=== PATIENT | male | born 1975 | race Caucasian/White ===

== ENCOUNTER 2018-08-12 12:37 | Emergency (ER) | payer SELFPAY ==
--- NOTE | 2018-08-12 13:49 | EDPHYS ---
Physician Documentation [facility] Name: Howie Gutierrez Age: 42 yrs Sex: Male : 1975 Arrival Date: 08/12/2018 Time: 12:38 Bed 26 Private MD: ED Physician Rip Cook HPI: 08/12 13:45 This 42 yrs old Male presents to ER via Ambulatory with complaints of erica Laceration To Arm. 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 The laceration(s) is(are) erica located on the left wrist. Onset: The symptoms/episode began/occurred just prior to arrival. Associated signs and symptoms: The patient has no apparent associated signs or symptoms. The patient has not experienced similar symptoms in the past. Historical: - Allergies: 13:02 No Known Allergies; hj - PMHx: 13:02 None; hj - PSHx: 13:02 None; hj - Immunization history:: Adult Immunizations up to date. - Social history:: Smoking status: Patient/guardian denies using tobacco, Patient/guardian denies using alcohol. - Ebola Screening: : Patient negative for fever greater than or equal to 101.5 degrees Fahrenheit, and additional compatible Ebola Virus Disease symptoms Patient denies exposure to infectious person Patient denies travel to an Ebola-affected area in the 21 days before illness onset. - Family history:: not pertinent. ROS: 13:45 Constitutional: Negative for fever, chills, and weight loss, Eyes: Negative for injury, erica pain, redness, and discharge, ENT: Negative for injury, pain, and discharge, Neck: Negative for injury, pain, and swelling, Cardiovascular: Negative for chest pain, palpitations, and edema, Respiratory: Negative for shortness of breath, cough, wheezing, and pleuritic chest pain, Abdomen/GI: Negative for abdominal pain, nausea, vomiting, diarrhea, and constipation, Back: Negative for injury and pain, : Negative for injury, bleeding, discharge, and swelling, Skin: Negative for injury, rash, and discoloration, Neuro: Negative for headache, weakness, numbness, tingling, and seizure, Psych: Negative for depression, anxiety, suicide ideation, homicidal ideation, and hallucinations, Allergy/Immunology: Negative for hives, rash, and allergies, Endocrine: Negative for neck swelling, polydipsia, polyuria, polyphagia, and marked weight changes, Hematologic/Lymphatic: Negative for swollen nodes, abnormal bleeding, and unusual bruising. 13:45 MS/extremity: Positive for laceration, tenderness, of the left wrist. Exam: 13:45 Constitutional: This is a well developed, well nourished patient who is awake, alert, erica and in no acute distress. Head/Face: Normocephalic, atraumatic. Eyes: Pupils equal round and reactive to light, extra-ocular motions intact. Lids and lashes normal. Conjunctiva and sclera are non-icteric and not injected. Cornea within normal limits. Periorbital areas with no swelling, redness, or edema. ENT: Nares patent. No nasal discharge, no septal abnormalities noted. Tympanic membranes are normal and external auditory canals are clear. Oropharynx with no redness, swelling, or masses, exudates, or evidence of obstruction, uvula midline. Mucous membranes moist. Neck: Trachea midline, no thyromegaly or masses palpated, and no cervical lymphadenopathy. Supple, full range of motion without nuchal rigidity, or vertebral point tenderness. No Meningismus. Chest/axilla: Normal chest wall appearance and motion. Nontender with no deformity. No lesions are appreciated. Cardiovascular: Regular rate and rhythm with a normal S1 and S2. No gallops, murmurs, or rubs. Normal PMI, no JVD. No pulse deficits. Respiratory: Lungs have equal breath sounds bilaterally, clear to auscultation and percussion. No rales, rhonchi or wheezes noted. No increased work of breathing, no retractions or nasal flaring. Abdomen/GI: Soft, non-tender, with normal bowel sounds. No distension or tympany. No guarding or rebound. No evidence of tenderness throughout. Back: No spinal tenderness. No costovertebral tenderness. Full range of motion. Male : Normal genitalia with no discharge or lesions. Skin: Warm, dry with normal turgor. Normal color with no rashes, no lesions, and no evidence of cellulitis. Neuro: Awake and alert, GCS 15, oriented to person, place, time, and situation. Cranial nerves II-XII grossly intact. Motor strength 5/5 in all extremities. Sensory grossly intact. Cerebellar exam normal. Normal gait. Psych: Awake, alert, with orientation to person, place and time. Behavior, mood, and affect are within normal limits. 13:45 Musculoskeletal/extremity: ROM: no acute changes, intact in all extremities, full active range of motion, Circulation is intact in all extremities. Sensation intact. Compartment Syndrome exam of affected extremity: is normal. Vital Signs: 13:03 BP 143 / 90; Pulse 60; Resp 18; Temp 98.8(O); Pulse Ox 100% on R/A; Weight 88.9 kg; hj Height 5 ft. 8 in. (172.72 cm); Pain 8/10; 14:15 BP 138 / 89; Pulse 60; Resp 18; Pulse Ox 100% on R/A; hj 13:03 Body Mass Index 29.80 (88.90 kg, 172.72 cm) Laceration: 13:50 Wound Repair of 2.5cm ( 1.0in ) subcutaneous laceration to left wrist. Irregularly erica shaped.. Distal neuro/vascular/tendon intact. Anesthesia: Local anesthetic administered with 5 mls of 1% lidocaine w/ Epi. Wound prep: Simple cleansing by me. Skin closed with 4 5-0 Prolene using vertical mattress sutures and sterile technique. Dressed with Neosporin, non-adherent dressing. Patient tolerated well. MDM: 13:16 Patient medically screened. [facility] 13:47 Data reviewed: vital signs, nurses notes. 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 Exp: 06/12/2020. Lot #: [id number]. } Route: IM; Site: right deltoid; 14:10 Follow up: Response: No adverse reaction 14:10 Drug: KeFLEX 500 mg Route: PO; 14:10 Follow up: Response: No adverse reaction hj Disposition: 08/12/18 13:48 Discharged to Home. Impression: Laceration without foreign body of left forearm. - Condition is Stable. - Discharge Instructions: Laceration Care, Adult, Laceration Care, Adult, [id number]. - Prescriptions for Keflex 500 mg Oral Capsule - take 1 capsule by ORAL route every 6 hours for 7 days; 28 capsule. Tylenol- Codeine #3 300-30 mg Oral Tablet - take 2 tablets by ORAL route every 6 hours As needed; 20 tablet. - Medication Reconciliation Form, Thank You Letter, Antibiotic Education, Prescription Opioid Use form. - Follow up: Private Physician; When: 7 - 10 days; Reason: Recheck today's complaints, Continuance of care, Re-evaluation by your physician. - Problem is new. - Symptoms have improved. Signatures: Rip Cook MD MD cha Joaquin, Henry, RN RN hj Corrections: (The following items were deleted from the chart) 14:15 13:48 08/12/2018 13:48 Discharged to Home. Impression: Laceration without foreign body hj of left forearm. Condition is Stable. Forms are Medication Reconciliation Form, Thank You Letter, Antibiotic Education, Prescription Opioid Use. Follow up: Private Physician; When: 7 - 10 days; Reason: Recheck today's complaints, Continuance of care, Re-evaluation by your physician. Problem is new. Symptoms have improved. erica
--- NOTE | 2018-08-12 13:49 | ER ---
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 Transition of care: patient was not received from another setting of care. Complicating Factors: There are no complicating factors for this patient. Onset of symptoms was August 12, 2018. Risk Assessment: Do you want to hurt yourself or someone else? Patient reports no desire to harm self or others. Initial Sepsis Screen: Does the patient meet any 2 criteria? No. Patient's initial sepsis screen is negative. Does the patient have a suspected source of infection? No. Patient's initial sepsis screen is negative. Care prior to arrival: None. 13:00 Method Of Arrival: Ambulatory 13:00 Acuity: YASMINE 4 hj Triage Assessment: 13:22 General: Appears in no apparent distress. uncomfortable, Behavior is calm, cooperative, hj appropriate for age. Pain: Complains of pain in left arm. Injury Description: Laceration. Historical: - Allergies: 13:02 No Known Allergies; hj - PMHx: 13:02 None; hj - PSHx: 13:02 None; hj - Immunization history:: Adult Immunizations up to date. - Social history:: Smoking status: Patient/guardian denies using tobacco, Patient/guardian denies using alcohol. - Ebola Screening: : Patient negative for fever greater than or equal to 101.5 degrees Fahrenheit, and additional compatible Ebola Virus Disease symptoms Patient denies exposure to infectious person Patient denies travel to an Ebola-affected area in the 21 days before illness onset. - Family history:: not pertinent. Screenin:22 Abuse screen: Denies threats or abuse. Denies injuries from another. Nutritional hj screening: No deficits noted. Tuberculosis screening: No symptoms or risk factors identified. Fall Risk None identified. Assessment: 13:23 Musculoskeletal: No signs and/or symptoms reported regarding the musculoskeletal hj system. Injury Description: Laceration sustained to left arm is. 13:23 General: Appears in no apparent distress. uncomfortable, Behavior is calm, cooperative, hj appropriate for age. Pain: Complains of pain in left wrist. Neuro: Level of Consciousness is awake, alert, obeys commands, Oriented to person, place, time, situation, Appropriate for age. Cardiovascular: Capillary refill < 3 seconds Patient's skin is warm and dry. Respiratory: Airway is patent Respiratory effort is even, unlabored, Respiratory pattern is regular, symmetrical. GI: No signs and/or symptoms were reported involving the gastrointestinal system. : No signs and/or symptoms were reported regarding the genitourinary system. EENT: No signs and/or symptoms were reported regarding the EENT system. Derm: Wound noted left wrist Wound is 2-3 inches, clean and well approximated;. 13:36 Reassessment: lacerated wound cleaned with NS, chlorhexidine and iodine; covered with hj gauze;. 14:14 Reassessment: Patient and/or family updated on plan of care and expected duration. Pain hj level reassessed. Patient is alert, oriented x 3, equal unlabored respirations, skin warm/dry/pink. D/C instructions given; [address];. Vital Signs: 13:03 BP 143 / 90; Pulse 60; Resp 18; Temp 98.8(O); Pulse Ox 100% on R/A; Weight 88.9 kg; hj Height 5 ft. 8 in. (172.72 cm); Pain 8/10; 14:15 BP 138 / 89; Pulse 60; Resp 18; Pulse Ox 100% on R/A; hj 13:03 Body Mass Index 29.80 (88.90 kg, 172.72 cm) ED Course: 12:38 Patient arrived in ED. as 13:02 Triage completed. hj 13:04 Arm band placed on right wrist. hj 13:13 Dominic Obrien RN is Primary Nurse. hj 13:16 Rip Cook MD is Attending Physician. [facility] 13:23 Patient has correct armband on for positive identification. Placed in gown. Bed in low hj position. Call light in reach. Side rails up X 1. 14:14 No provider procedures requiring assistance completed. Patient did not have IV access hj during this emergency room visit. Administered Medications: 13:56 Drug: Lidocaine-Epinephrine -1%: (1:100,000) 50 ml Volume: 20 ml; Route: Infiltration; hj 14:10 Drug: Tetanus-Diphtheria Toxoid Adult 0.5 ml {[employer] Machine: [employer]. Exp: 06/12/2020. Lot #: [id number]. } Route: IM; Site: right deltoid; 14:10 Follow up: Response: No adverse reaction hj 14:10 Drug: KeFLEX 500 mg Route: PO; hj 14:10 Follow up: Response: No adverse reaction hj Outcome: 13:48 Discharge ordered by . erica 14:15 Discharged to home ambulatory. 14:15 Condition: stable 14:15 Discharge instructions given to patient, Instructed on discharge instructions, follow up and referral plans. medication usage, Demonstrated understanding of instructions, follow-up care, medications, Prescriptions given X 2. 14:15 Patient left the ED. Signatures: Rip Cook MD MD cha Martinez, Amelia as Joaquin, Henry, RN RN hj Corrections: (The following items were deleted from the chart) 13:04 13:00 Presenting complaint: Patient states: i was working on a metal roof today about hj an hour ago on cut my L arm on it; blood is not squirting; applied ashlyn wrapped on the area; hj 13:05 13:03 Pulse 65bpm; Resp 18bpm; Pulse Ox 100% RA; Temp 98.8F Oral; 88.9 kg; Height 5 ft. hj 8 in.; BMI: 29.8; Pain 8/10; hj
[2018-08-12] MEDS ORDERED: LIDOCAINE 1% W/EPI 1:100,000 MDV 50 ML VIAL ONE (13:51)
[2018-08-12] MEDS ORDERED: CEPHALEXIN 250 MG CAP ONE (14:06)
[2018-08-12] MEDS ORDERED: TETANUS & DIPHTHERIA TOX,ADULT 0.5 ML VIAL ONE (14:07)
== END 2018-08-12 14:15 | disposition home or self-care (01) ==
LOC: ER 12:37
PROC: 0JQH0ZZ Repair Left Lower Arm Subcutaneous Tissue and Fascia, Open Approach (ICD-10-PCS; principal; 2018-08-12)
DX: S61.512A Laceration without foreign body of left wrist, initial encounter (principal); W45.8XXA Other foreign body or object entering through skin, initial encounter; Y93.89 Activity, other specified; Y92.9 Unspecified place or not applicable; Z23 Encounter for immunization
CPT/HCPCS: 90714; 99283

== ENCOUNTER 2018-12-08 14:17 | Emergency (ER) | payer SELFPAY ==
--- NOTE | 2018-12-08 15:35 | ER ---
Nurse's Notes [facility] Name: Howie Gutierrez Age: 43 yrs Sex: Male : 1975 Arrival Date: 12/08/2018 Time: 14:19 Bed 16 Private MD: Diagnosis: Cellulitis of left upper limb-wrist;Encounter for removal of sutures Presentation: 12/08 14:25 Presenting complaint: Patient states: i had 4 stitches placed on my L wrist area last hj August 2018 b ut i didn't had the chance to have it removed, now it looks like its infected;. Transition of care: patient was not received from another setting of care. Onset of symptoms was December 08, 2018. Risk Assessment: Do you want to hurt yourself or someone else? Patient reports no desire to harm self or others. Initial Sepsis Screen: Does the patient meet any 2 criteria? No. Patient's initial sepsis screen is negative. Does the patient have a suspected source of infection? No. Patient's initial sepsis screen is negative. Care prior to arrival: None. 14:25 Method Of Arrival: Ambulatory 14:25 Acuity: YASMINE 4 hj Historical: - Allergies: 14:26 No Known Allergies; hj - PMHx: 14:26 None; hj - PSHx: 14:26 None; hj - Immunization history:: Adult Immunizations unknown. - Social history:: Smoking status: Patient/guardian denies using tobacco. - Ebola Screening: : No symptoms or risks identified at this time. Screenin:00 Abuse screen: Denies threats or abuse. Denies injuries from another. Nutritional ph screening: No deficits noted. Tuberculosis screening: No symptoms or risk factors identified. Fall Risk None identified. Assessment: 15:15 General: Appears in no apparent distress. comfortable, well groomed, Behavior is calm, ph cooperative, appropriate for age, Denies fever. Pain: Complains of pain in left wrist. Neuro: Level of Consciousness is awake, alert, obeys commands, Oriented to person, place, time, situation. Cardiovascular: Capillary refill < 3 seconds in bilateral fingers Patient's skin is warm and dry. Respiratory: Airway is patent Respiratory effort is even, unlabored, Respiratory pattern is regular, symmetrical. Derm: Skin is healthy with good turgor, Skin is pink, warm \T\ dry. area of swelling and redness noted to L wrist, sutures noted beneath skin. Musculoskeletal: Circulation, motion, and sensation intact. Range of motion: intact in all extremities. 15:45 Reassessment: Patient appears in no apparent distress at this time. Patient and/or ph family updated on plan of care and expected duration. Pain level reassessed. ERP at bedside, able to remove 2 sutures, 2 remain embedded in skin. 16:00 Reassessment: Patient appears in no apparent distress at this time. Patient and/or ph family updated on plan of care and expected duration. Pain level reassessed. Patient is alert, oriented x 3, equal unlabored respirations, skin warm/dry/pink. Pt d/c home, instructed to follow up w/ general surgeon to have other sutures removed. Vital Signs: 14:27 BP 138 / 81; Pulse 77; Resp 18; Temp 97.4(TE); Pulse Ox 99% on R/A; Weight 90.72 kg; hj Height 5 ft. 8 in. (172.72 cm); Pain 2/10; 16:00 BP 122 / 78; Pulse 71; Resp 18; Temp 98.0; Pulse Ox 99% on R/A; ph 14:27 Body Mass Index 30.41 (90.72 kg, 172.72 cm) hj ED Course: 14:19 Patient arrived in ED. rg4 14:26 Triage completed. hj 14:26 Arm band placed on right wrist. hj 14:53 Shea Ibarra, RN is Primary Nurse. ph 14:55 Don Rivera NP is PHCP. pm1 14:55 Rip Cook MD is Attending Physician. pm1 15:00 Patient has correct armband on for positive identification. Bed in low position. Call ph light in reach. 15:15 No provider procedures requiring assistance completed. Patient did not have IV access ph during this emergency room visit. 15:33 Rashaad Lima MD is Referral Physician. pm1 Administered Medications: No medications were administered Outcome: 15:34 Discharge ordered by . pm1 16:00 Patient left the ED. ph 16:00 Discharged to home ambulatory. ph 16:00 Condition: good 16:00 Discharge instructions given to patient, Instructed on discharge instructions, follow up and referral plans. medication usage, Demonstrated understanding of instructions, follow-up care, medications, Prescriptions given X 2. Signatures: Shea Ibarra RN RN Dominic Obrien RN RN Don Rivera, [employer] pm1 Sherrie Hwang rg4 Corrections: (The following items were deleted from the chart) 14:28 14:27 Pulse 77bpm; Resp 18bpm; Pulse Ox 99% RA; Temp 97.4F Temporal; 90.72 kg; Height 5 hj ft. 8 in.; BMI: 30.4; Pain 2/10; hj 19:17 15:15 Condition: good ph ph 19:17 15:15 Discharged to home ambulatory, ph ph 19:17 15:15 Discharge instructions given to patient, Instructed on discharge instructions, ph follow up and referral plans. medication usage, Demonstrated understanding of instructions, follow-up care, medications, Prescriptions given X 2, ph
--- NOTE | 2018-12-08 15:35 | EDPHYS ---
Physician Documentation [facility] Name: Howie Gutierrez Age: 43 yrs Sex: Male : 1975 Arrival Date: 12/08/2018 Time: 14:19 Bed 16 Private MD: ED Physician Rip Cook HPI: 12/08 15:31 This 43 yrs old Male presents to ER via Ambulatory with complaints of Wound pm1 Infection. 15:31 the patient presents with a swollen area of the left wrist. Description: draining. pm1 Onset: The symptoms/episode began/occurred today. Possible cause(s): sutures present in his wrist for the past 4 months. 4 sutures were placed on 08/08/2018 and he did not get them removed at the recommended time frame. Associated signs and symptoms: Pertinent positives: drainage, Pertinent negatives: fever. Modifying factors: the symptoms are alleviated by squeezing the lesion and expressing the contents, the symptoms are aggravated by nothing. Severity of symptoms: in the emergency department the symptoms are actually worse. The patient has not experienced similar symptoms in the past. The patient has not recently seen a physician. Historical: - Allergies: 14:26 No Known Allergies; hj - PMHx: 14:26 None; hj - PSHx: 14:26 None; hj - Immunization history:: Adult Immunizations unknown. - Social history:: Smoking status: Patient/guardian denies using tobacco. - Ebola Screening: : No symptoms or risks identified at this time. ROS: 15:31 Constitutional: Negative for fever, chills, and weight loss, Eyes: Negative for injury, pm1 pain, redness, and discharge, ENT: Negative for injury, pain, and discharge, Neck: Negative for injury, pain, and swelling, Cardiovascular: Negative for chest pain, palpitations, and edema, Respiratory: Negative for shortness of breath, cough, wheezing, and pleuritic chest pain, Abdomen/GI: Negative for abdominal pain, nausea, vomiting, diarrhea, and constipation, Back: Negative for injury and pain, MS/Extremity: Negative for injury and deformity. 15:31 Neuro: Negative for headache, weakness, numbness, tingling, and seizure. 15:31 Skin: Positive for abscess, of the left wrist. Exam: 15:31 Constitutional: This is a well developed, well nourished patient who is awake, alert, pm1 and in no acute distress. Head/Face: Normocephalic, atraumatic. Neck: Trachea midline, no thyromegaly or masses palpated, and no cervical lymphadenopathy. Supple, full range of motion without nuchal rigidity, or vertebral point tenderness. No Meningismus. Chest/axilla: Normal chest wall appearance and motion. Nontender with no deformity. No lesions are appreciated. Cardiovascular: Regular rate and rhythm with a normal S1 and S2. No gallops, murmurs, or rubs. Normal PMI, no JVD. No pulse deficits. Respiratory: Lungs have equal breath sounds bilaterally, clear to auscultation and percussion. No rales, rhonchi or wheezes noted. No increased work of breathing, no retractions or nasal flaring. Abdomen/GI: Soft, non-tender, with normal bowel sounds. No distension or tympany. No guarding or rebound. No evidence of tenderness throughout. Back: No spinal tenderness. No costovertebral tenderness. Full range of motion. 15:31 Skin: Appearance: normal except for affected area, cellulitis, that is mild, on the left wrist. 15:31 Neuro: Orientation: is normal, Motor: is normal, moves all fours. Vital Signs: 14:27 BP 138 / 81; Pulse 77; Resp 18; Temp 97.4(TE); Pulse Ox 99% on R/A; Weight 90.72 kg; hj Height 5 ft. 8 in. (172.72 cm); Pain 2/10; 16:00 BP 122 / 78; Pulse 71; Resp 18; Temp 98.0; Pulse Ox 99% on R/A; ph 14:27 Body Mass Index 30.41 (90.72 kg, 172.72 cm) Procedures: 15:31 Suture/Staple removal: Removed 2 sutures, from left wrist, site appears reddened, pm1 swollen, dressed with gauze bandage, Neosporin, Patient tolerated well, Area cleansed with Betadine and irrigated with saline. 1 suture on the lateral edge of scar without any surrounding redness or inflammation. Suture was visible outside of the skin with knot underneath the skin. It was removed easily by pulling on the suture until knot exposed. The second knot removed had 1 cm of surrounding redness and swelling. No purulent drainage present. Suture was barely visible inside the wound that patient subjectively expressed drainage. Buried approximately 4 mm under the skin. Removed by hooking with single prong of tweezer and cut with iris scissors. Other two remaining sutures not visible through the skin. Consulted with Dr. Cook and he recommended that the patient follow up with Dr. Lima or general surgery for exploration and removal of two remaining sutures. MDM: 14:55 Patient medically screened. [facility] 15:31 Data reviewed: vital signs. Data interpreted: Pulse oximetry: on room air is 99 %. pm1 Interpretation: normal. Counseling: I had a detailed discussion with the patient and/or guardian regarding: the historical points, exam findings, and any diagnostic results supporting the discharge/admit diagnosis, the need for outpatient follow up, for definitive care, a general surgeon, to return to the emergency department if symptoms worsen or persist or if there are any questions or concerns that arise at home. Administered Medications: No medications were administered Disposition: 12/09 06:46 Co-signature as Attending Physician, Rip Cook MD I agree with the assessment and [facility] plan of care. Disposition: 12/08/18 15:34 Discharged to Home. Impression: Cellulitis of left upper limb - wrist, Encounter for removal of sutures. - Condition is Stable. - Discharge Instructions: Cellulitis, Adult, Suture Removal, Care After. - Prescriptions for Bactrim DS 800- 160 mg Oral Tablet - take 1 tablet by ORAL route every 12 hours for 10 days; 20 tablet. Keflex 500 mg Oral Capsule - take 1 capsule by ORAL route every 6 hours for 10 days; 40 capsule. - Work release form, Medication Reconciliation Form, Thank You Letter, Antibiotic Education, Prescription Opioid Use form. - Follow up: Emergency Department; When: As needed; Reason: Worsening of condition. Follow up: Rashaad Lima MD; When: 2 - 3 days; Reason: Recheck today's complaints, Continuance of care, Re-evaluation by your physician. - Problem is new. - Symptoms have improved. Signatures: Rip Cook MD MD cha Hall, Patricia RN RN Dominic Miller RN RN Don Velásquez, [employer] pm1 Corrections: (The following items were deleted from the chart) 12/08 16:00 15:34 12/08/2018 15:34 Discharged to Home. Impression: Cellulitis of left upper limb - ph wrist; Encounter for removal of sutures. Condition is Stable. Forms are Medication Reconciliation Form, Thank You Letter, Antibiotic Education, Prescription Opioid Use. Follow up: Emergency Department; When: As needed; Reason: Worsening of condition. Follow up: Rashaad Lima; When: 2 - 3 days; Reason: Recheck today's complaints, Continuance of care, Re-evaluation by your physician. Problem is new. Symptoms have improved. pm1
== END 2018-12-08 16:00 | disposition home or self-care (01) ==
LOC: ER 14:17
DX: L03.114 Cellulitis of left upper limb (principal); Z48.02 Encounter for removal of sutures
CPT/HCPCS: 99282

== ENCOUNTER 2021-01-09 19:49 | Emergency (ER) | payer SELFPAY ==
--- NOTE | 2021-01-09 20:43 | EDPHYS ---
Physician Documentation [facility] Name: Howie Gutierrez Age: 45 yrs Sex: Male : 1975 Arrival Date: 01/09/2021 Time: 19:51 Bed 12 Private MD: ED Physician Ethan Velez HPI: 01/09 20:33 This 45 yrs old Male presents to ER via Ambulatory with complaints of Thinks pkl he has a hernia. 20:33 Patient think he has a hernia.. Onset: The symptoms/episode began/occurred yesterday. pkl Patient said he noticed a bulge in his abdomen when lying down yesterday. Denies any pain.. Historical: - Allergies: 20:10 No Known Allergies; wg - Immunization history:: Adult Immunizations up to date. - Social history:: Smoking status: Patient reports the use of cigarette tobacco products, denies chronic smoking, but will smoke occasionally. - Code Status:: Full code. ROS: 20:33 Eyes: Negative for injury, pain, redness, and discharge, ENT: Negative for injury, pkl pain, and discharge, Neck: Negative for injury, pain, and swelling, Cardiovascular: Negative for chest pain, palpitations, and edema, Respiratory: Negative for shortness of breath, cough, wheezing, and pleuritic chest pain. 20:33 Abdomen/GI: Positive for bulge in abdomen when lying down. 20:33 Back: Negative for acute changes. 20:33 : Negative for urinary symptoms. 20:33 MS/extremity: Negative for acute changes. 20:33 Skin: Negative for rash. 20:33 Neuro: Negative for altered mental status, loss of consciousness. Exam: 20:33 Head/Face: Normocephalic, atraumatic. Eyes: Pupils equal round and reactive to light, pkl extra-ocular motions intact. Lids and lashes normal. Conjunctiva and sclera are non-icteric and not injected. Cornea within normal limits. Periorbital areas with no swelling, redness, or edema. ENT: Nares patent. No nasal discharge, no septal abnormalities noted. Tympanic membranes are normal and external auditory canals are clear. Oropharynx with no redness, swelling, or masses, exudates, or evidence of obstruction, uvula midline. Mucous membranes moist. Neck: Trachea midline, no thyromegaly or masses palpated, and no cervical lymphadenopathy. Supple, full range of motion without nuchal rigidity, or vertebral point tenderness. No Meningismus. Chest/axilla: Normal chest wall appearance and motion. Nontender with no deformity. No lesions are appreciated. Cardiovascular: Regular rate and rhythm with a normal S1 and S2. No gallops, murmurs, or rubs. Normal PMI, no JVD. No pulse deficits. Respiratory: Lungs have equal breath sounds bilaterally, clear to auscultation and percussion. No rales, rhonchi or wheezes noted. No increased work of breathing, no retractions or nasal flaring. 20:33 Abdomen/GI: Inspection: ventral hernia noted. 20:33 Back: Exam negative for acute changes. 20:33 : Exam negative for acute changes. 20:33 Musculoskeletal/extremity: Exam is negative for acute changes. 20:33 Skin: Exam negative for rash. 20:33 Neuro: Orientation: is normal, Mentation: is normal, Cranial nerves: grossly normal, Motor: is normal. Vital Signs: 20:07 BP 146 / 90; Pulse 72; Resp 18; Temp 98.8; Pulse Ox 100% on R/A; Weight 93.44 kg; wg Height 5 ft. 8 in. (172.72 cm); Pain 2/10; 20:36 BP 139 / 80; Pulse 79; Resp 20; Pulse Ox 100% on R/A; kg 20:07 Body Mass Index 31.32 (93.44 kg, 172.72 cm) wg MDM: 20:24 Patient medically screened. pkl 20:33 Data reviewed: vital signs, nurses notes. ED course: Advised patient to wear abdominal pkl binder. To follow up with Surgeon if symptomatic. Patient understood instruction. Administered Medications: No medications were administered Disposition Summary: 01/09/21 20:42 Discharge Ordered Location: Home pkl Problem: new pkl Symptoms: are unchanged pkl Condition: Stable pkl Diagnosis - Ventral hernia pkl Followup: pkl - With: Private Physician - When: 2 - 3 days - Reason: Re-evaluation by your physician Forms: - Medication Reconciliation Form pkl - Thank You Letter pkl - Antibiotic Education pkl - Prescription Opioid Use pkl Signatures: Ethan Velez MD MD pkl Edy Kim, RN wg
--- NOTE | 2021-01-09 20:43 | ER ---
Nurse's Notes [facility] Name: Howie Gutierrez Age: 45 yrs Sex: Male : 1975 Arrival Date: 01/09/2021 Time: 19:51 Bed 12 Private MD: Diagnosis: Ventral hernia Presentation: 01/09 20:07 Chief complaint: Patient states: Pt states he noticed a bulge in his abdomen Saturday wg morning that he thinks may be a hernia. Pt denies ever having a hernia in the past. Pt states he feels slightly nauseated but hasn't vomited. Denies vomiting, diarrhea or any other complaints. Pt just wanted to come make sure it wasn't anything life threatening. Coronavirus screen: Vaccine status: Patient reports being unvaccinated. At this time, the client does not indicate any symptoms associated with coronavirus-19. Ebola Screen: Patient negative for fever greater than or equal to 101.5 degrees Fahrenheit, and additional compatible Ebola Virus Disease symptoms Patient denies exposure to infectious person. Patient denies travel to an Ebola-affected area in the 21 days before illness onset. No symptoms or risks identified at this time. Initial Sepsis Screen: Does the patient meet any 2 criteria? No. Patient's initial sepsis screen is negative. Does the patient have a suspected source of infection? No. Patient's initial sepsis screen is negative. Risk Assessment: Do you want to hurt yourself or someone else? Patient reports no desire to harm self or others. Onset of symptoms was January 08, 2021 at 08:00. Care prior to arrival: None. 20:07 Method Of Arrival: Ambulatory 20:07 Acuity: YASMINE 3 wg Triage Assessment: 20:10 General: Appears in no apparent distress. comfortable, well groomed, Behavior is calm, wg cooperative, appropriate for age. Pain: Complains of pain in abdomen Pain does not radiate. Pain currently is 2 out of 10 on a pain scale. Quality of pain is described as aching, Pain began 1 day ago. Is. EENT: No deficits noted. Neuro: No deficits noted. Cardiovascular: No deficits noted. Respiratory: No deficits noted. GI: Reports normal bowel habits, Patient currently denies bloody stool, constipation, cramping, diarrhea, gaseousness, incontinence, nausea, vomiting. : No deficits noted. Derm: No deficits noted. Musculoskeletal: No deficits noted. Historical: - Allergies: 20:10 No Known Allergies; wg - Immunization history:: Adult Immunizations up to date. - Social history:: Smoking status: Patient reports the use of cigarette tobacco products, denies chronic smoking, but will smoke occasionally. - Code Status:: Full code. Screenin:36 Abuse screen: Denies threats or abuse. Denies injuries from another. Nutritional kg screening: No deficits noted. Tuberculosis screening: No symptoms or risk factors identified. Fall Risk None identified. Assessment: 20:35 General: Appears in no apparent distress. Behavior is calm, cooperative, Reports States df1 bulging in umbilical area. Pain: Denies pain. Neuro: No deficits noted. Cardiovascular: No deficits noted. Respiratory: No deficits noted. GI: Abdomen is non-distended, Abd is non tender X 4 quads Weak area noted to umbilical area by provider. Pt denies N/V/D/pain. : No deficits noted. EENT: No deficits noted. Derm: No deficits noted. Musculoskeletal: No deficits noted. Vital Signs: 20:07 BP 146 / 90; Pulse 72; Resp 18; Temp 98.8; Pulse Ox 100% on R/A; Weight 93.44 kg; wg Height 5 ft. 8 in. (172.72 cm); Pain 2/10; 20:36 BP 139 / 80; Pulse 79; Resp 20; Pulse Ox 100% on R/A; kg 20:07 Body Mass Index 31.32 (93.44 kg, 172.72 cm) ED Course: 19:51 Patient arrived in ED. wm 20:10 Triage completed. wg 20:10 Arm band placed on left wrist. wg 20:24 Ethan Velez MD is Attending Physician. pkl 20:34 Rohini Gillis is Primary Nurse. df1 20:36 Patient has correct armband on for positive identification. kg 20:36 No provider procedures requiring assistance completed. Patient did not have IV access kg during this emergency room visit. Administered Medications: No medications were administered Outcome: 20:37 Condition: good df1 20:42 Discharge ordered by . pkl 20:53 Discharged to home ambulatory. kg 20:53 Discharge instructions given to patient. 20:54 Patient left the ED. df1 Signatures: Ethan Velez MD MD pkShalini Wilhelm, RN RN Rocio Madison Liam, HUGH Gillis, Rohini df1
[2021-01-09 21:16] VITALS: TEMP 98.8; O2SAT 100
[2021-01-09 21:17] VITALS: BP 139/80
== END 2021-01-09 20:54 | disposition home or self-care (01) ==
LOC: ER 19:49
DX: K43.9 Ventral hernia without obstruction or gangrene (principal); F17.210 Nicotine dependence, cigarettes, uncomplicated
CPT/HCPCS: 99281